=== PATIENT | male | born 1965 | race African-American/Black ===

== ENCOUNTER 2023-03-19 15:19 | Emergency (ER) | payer MEDICARE ==
[~2023-03-19] VITALS: Ht 180.3 cm; Wt 67.5 kg
[2023-03-19] MEDS ORDERED: NAPR220C14 PO (16:20)
[2023-03-19] MEDS ORDERED: ADDE12.5 PO (16:20)
[2023-03-19] MEDS ORDERED: MUCI600T31 PO (16:20)
[2023-03-19 20:21] VITALS: BP 138/86; TEMP 97.8; O2SAT 100
[2023-03-19 21:47] LABS: BASO % 0.6 % (0.0-1.0); EOS # 0.3 10^3/uL (0.0-0.5); HEMATOCRIT 38.1 % (42.0-52.0); HEMOGLOBIN 12.9 g/dl (13.5-17.5); LYMPH # 2.7 10^3/uL (1.5-5.0); LYMPH % 42.1 % (24.0-44.0); MEAN CORPUSCULAR HEMOGLOBIN 31.6 pg (27.0-33.0); MEAN CORPUSCULAR HGB CONC 33.9 g/dl (32.0-36.5); MEAN CORPUSCULAR VOLUME 93.4 fl (80.0-96.0); MONO # 0.5 10^3/uL (0.0-0.8); MONO % 8.6 % (2.0-8.0); NEUTROPHILS # 2.8 10^3/uL (1.5-8.5); NEUTROPHILS % 44.5 % (36.0-66.0); PLATELET COUNT, AUTOMATED 282 10^3/uL (150-450); RED BLOOD COUNT 4.08 10^6/uL (4.30-6.10); WHITE BLOOD COUNT 6.3 10^3/uL (4.0-10.0)
[2023-03-19] MEDS ORDERED: IPRATROPIUM 0.5MG/ALBUTEROL 2.5MG INH SOL UD 3ML (DUONEB) NEB ONE (22:05)
[2023-03-19 22:08] LABS: INR 0.89; PROTHROMBIN TIME 12.2 SECONDS (12.5-14.5)
[2023-03-19 22:09] LABS: PARTIAL THROMBOPLASTIN TIME 26.8 SECONDS (24.8-34.2)
[2023-03-19 22:14] LABS: CK-MB VALUE MASS < 1.0 NG/ML (<3.6)
[2023-03-19 22:18] LABS: FREE T4 1.13 NG/DL (0.89-1.76)
[2023-03-19 22:19] LABS: THYROID STIMULATING HORMONE 0.827 uIU/ML (0.55-4.78)
[2023-03-19 22:26] LABS: CPK CREATINE PHOSPHOKINASE 127 U/L (46-171); MB/CK RELATIVE INDEX 0.78 (< OR =4)
[2023-03-19] MEDS ORDERED: VENTAER INH (22:52)
== END 2023-03-19 22:58 | disposition home or self-care (01) ==
LOC: M ED 15:19
DX: R06.02 Shortness of breath (principal); E23.0 Hypopituitarism; F41.9 Anxiety disorder, unspecified; F90.9 Attention-deficit hyperactivity disorder, unspecified type; F17.200 Nicotine dependence, unspecified, uncomplicated; Z88.1 Allergy status to other antibiotic agents; Z88.2 Allergy status to sulfonamides; Z88.8 Allergy status to other drugs, medicaments and biological substances; Z79.899 Other long term (current) drug therapy

== ENCOUNTER 2023-06-18 08:29 | Emergency (ER) | payer MEDICARE ==
[~2023-06-18] VITALS: Ht 180.3 cm; Wt 79.6 kg
[~2023-06-18 08:29] MED LIST: ADDE12.5 PO; MUCI600T31 PO; NAPR220C14 PO; VENTAER INH
[2023-06-18 10:53] VITALS: BP 166/78; TEMP 98.5; O2SAT 100
== END 2023-06-18 10:55 | disposition home or self-care (01) ==
LOC: M ED 08:29
DX: Z76.0 Encounter for issue of repeat prescription (principal); F41.9 Anxiety disorder, unspecified; F90.9 Attention-deficit hyperactivity disorder, unspecified type

== ENCOUNTER → 2023-12-18 | Outpatient (CLI) | payer MEDICARE | LOC: M CARPUL 11:49 | PROVIDERS: ATTEND Registered Nurse Psychiatric/Mental Health | DX: F43.20 Adjustment disorder, unspecified (principal); I45.10 Unspecified right bundle-branch block ==

== ENCOUNTER 2024-01-28 13:00 | Emergency (ER) | payer MEDICARE ==
[~2024-01-28] VITALS: Ht 180.3 cm; Wt 74.1 kg
[2024-01-28 15:23] LABS: BASO % 0.5 % (0.0-1.0); EOS # 0.1 10^3/uL (0.0-0.5); EOS % 1.2 % (0.0-3.0); HEMOGLOBIN 13.4 g/dl (13.5-17.5); LYMPH # 1.7 10^3/uL (1.5-5.0); LYMPH % 28.9 % (24.0-44.0); MEAN CORPUSCULAR HEMOGLOBIN 32.4 pg (27.0-33.0); MEAN CORPUSCULAR HGB CONC 34.4 g/dl (32.0-36.5); MEAN CORPUSCULAR VOLUME 94.4 fl (80.0-96.0); MONO # 0.5 10^3/uL (0.0-0.8); MONO % 8.6 % (2.0-8.0); NEUTROPHILS # 3.6 10^3/uL (1.5-8.5); NEUTROPHILS % 60.6 % (36.0-66.0); PLATELET COUNT, AUTOMATED 323 10^3/uL (150-450); RED BLOOD COUNT 4.13 10^6/uL (4.30-6.10); WHITE BLOOD COUNT 5.9 10^3/uL (4.0-10.0)
[2024-01-28 15:47] LABS: CORTISOL BASELINE 15.2 UG/DL (4.3-22.4)
[2024-01-28 15:49] LABS: ALBUMIN 3.9 G/DL (3.2-5.2); ALKALINE PHOSPHATASE 95 U/L (46-116); ALT/SGPT 29 U/L (7.0-40); AST/SGOT 16 U/L (<34); BILIRUBIN,TOTAL 0.4 MG/DL (0.3-1.2); BLOOD UREA NITROGEN 16 MG/DL (9-23); CALCIUM LEVEL 9.7 MG/DL (8.5-10.1); CARBON DIOXIDE LEVEL 28 MMOL/L (20-31); CHLORIDE LEVEL 106 MMOL/L (98-107); CREATININE FOR GFR 0.87 MG/DL (0.70-1.30); GLOMERULAR FILTRATION RATE > 60.0 (>56); GLUCOSE, FASTING 99 MG/DL (60-100); IRON (FE) 77 UG/DL (65-175); PERCENT SATURATION 21.7 % (19.7-50.0); POTASSIUM SERUM 4.3 MMOL/L (3.5-5.1); SODIUM LEVEL 141 MMOL/L (136-145); TOTAL IRON BINDING CAPACITY 355 UG/DL (250-425); TOTAL PROTEIN 7.2 G/DL (5.7-8.2)
[2024-01-28 15:50] LABS: FERRITIN 169.9 NG/ML (10.5-307.3); THYROID STIMULATING HORMONE 0.835 uIU/ML (0.55-4.78); THYROXINE (T4) 6.4 UG/DL (4.5-10.9)
[2024-01-28 15:51] LABS: FOLLICLE STIMULATING HORMONE 7.4 mIU/ML (1.4-18.1); LUTEINIZING HORMONE 3.5 mIU/ML (1.5-9.3)
[2024-01-28 15:52] LABS: VITAMIN B12 LEVEL 966 PG/ML (211-911)
[2024-01-28 15:54] LABS: FREE THYROXINE INDEX 1.9 % (1.4-3.8); T UPTAKE 29.6 % (22.5-37.0)
[2024-01-28 15:57] LABS: FOLATE > 24.00 NG/ML (>5.4)
[2024-01-28 16:42] VITALS: BP 126/72; TEMP 97.3; O2SAT 100
[2024-01-28 17:21] LABS: HIV 1&2 SCREEN NEGATIVE (NEGATIVE)
== END 2024-01-28 16:45 | disposition home or self-care (01) ==
LOC: M ED 13:00
DX: R53.83 Other fatigue (principal); E23.0 Hypopituitarism; Z88.1 Allergy status to other antibiotic agents; Z88.2 Allergy status to sulfonamides

== ENCOUNTER → 2024-03-06 | Outpatient (REF) | payer MEDICARE ==
[2024-03-06 18:26] LABS: PSA SCREENING 0.69 NG/ML (< 4.00)
[2024-03-06 18:28] LABS: ALKALINE PHOSPHATASE 87 U/L (46-116); ALT/SGPT 25 U/L (7.0-40); AST/SGOT 18 U/L (<34); BILIRUBIN,TOTAL 0.4 MG/DL (0.3-1.2); BLOOD UREA NITROGEN 18 MG/DL (9-23); CARBON DIOXIDE LEVEL 25 MMOL/L (20-31); CHLORIDE LEVEL 108 MMOL/L (98-107); CHOLESTEROL LEVEL 209 MG/DL (<200); CHOLESTEROL RISK RATIO 2.42 (<5); CREATININE FOR GFR 0.97 MG/DL (0.70-1.30); GLOMERULAR FILTRATION RATE > 60.0 (>56); GLUCOSE, FASTING 113 MG/DL (60-100); HDL CHOLESTEROL 86.2 MG/DL (>40); LDL CHOLESTEROL 102.4 MG/DL (<100); NON-HDL-C 122.8 MG/DL; POTASSIUM SERUM 4.3 MMOL/L (3.5-5.1); SODIUM LEVEL 139 MMOL/L (136-145); TOTAL PROTEIN 7.2 G/DL (5.7-8.2); TRIGLYCERIDES LEVEL 102 MG/DL (<150)
[2024-03-06 18:30] LABS: THYROID STIMULATING HORMONE 0.732 uIU/ML (0.55-4.78); TOTAL 25(OH) VITAMIN D 41.3 NG/ML (20.0-100.0)
[2024-03-06 18:33] LABS: BASO % 0.6 % (0.0-1.0); EOS # 0.3 10^3/uL (0.0-0.5); EOS % 3.7 % (0.0-3.0); HEMATOCRIT 41.7 % (42.0-52.0); HEMOGLOBIN 13.8 g/dl (13.5-17.5); LYMPH # 1.7 10^3/uL (1.5-5.0); LYMPH % 24.4 % (24.0-44.0); MEAN CORPUSCULAR HEMOGLOBIN 31.4 pg (27.0-33.0); MEAN CORPUSCULAR HGB CONC 33.1 g/dl (32.0-36.5); MONO # 0.6 10^3/uL (0.0-0.8); MONO % 8.8 % (2.0-8.0); NEUTROPHILS # 4.2 10^3/uL (1.5-8.5); NEUTROPHILS % 62.2 % (36.0-66.0); PLATELET COUNT, AUTOMATED 312 10^3/uL (150-450); RED BLOOD COUNT 4.39 10^6/uL (4.30-6.10); WHITE BLOOD COUNT 6.8 10^3/uL (4.0-10.0)
[2024-03-06 18:36] LABS: HEMOGLOBIN A1c 4.8 % (4.0-6.0)
== END ==
LOC: M LAB REF 16:52
PROVIDERS: ATTEND Nurse Practitioner Family
DX: R00.0 Tachycardia, unspecified (principal); R14.0 Abdominal distension (gaseous); E55.9 Vitamin D deficiency, unspecified; R53.83 Other fatigue; Z12.5 Encounter for screening for malignant neoplasm of prostate; Z79.899 Other long term (current) drug therapy; Z11.3 Encounter for screening for infections with a predominantly sexual mode of transmission; Z72.89 Other problems related to lifestyle
CPT/HCPCS: 80053; 80061; 82306; 83036; 84443; 85025; 86780; G0103

== ENCOUNTER → 2024-04-16 | Outpatient (REF) | payer MEDICARE ==
[2024-04-30 16:03] LABS: APPEARANCE, URINE TURBID (CLEAR)
[2024-04-30 16:04] LABS: BACTERIA, URINE AUTO NEGATIVE (NEGATIVE); BILIRUBIN, URINE AUTO NEGATIVE (NEGATIVE); BLOOD, URINE BLOOD NEGATIVE (NEGATIVE); COLOR, URINE YELLOW (YELLOW); GLUCOSE, URINE (UA) AUTO NEGATIVE (NEGATIVE); KETONE, URINE AUTO TRACE mg/dL (NEGATIVE); LEUKOCYTE ESTERASE, URINE AUTO NEGATIVE (NEGATIVE); NITRITE, URINE AUTO NEGATIVE (NEGATIVE); PROTEIN, URINE AUTO 1+ mg/dL (NEGATIVE); RBC, URINE AUTO 0 /HPF (0-3); SPECIFIC GRAVITY URINE AUTO 1.031 (1.002-1.035); SQUAMOUS EPITHELIAL CELL UR AU 3 /HPF (0-6); UROBILINOGEN, URINE AUTO 0.2 mg/dL (0.0-2.0); WBC, URINE AUTO 2 /HPF (0-3)
[2024-04-30 16:05] LABS: AMORPHOUS SEDIMENT SMALL (NEGATIVE); GC DNA AMPLIFICATION NEGATIVE (NEGATIVE); MUCUS, URINE SMALL (NEGATIVE)
== END ==
LOC: M LAB REF 12:18
PROVIDERS: ATTEND Nurse Practitioner Family
DX: R82.90 Unspecified abnormal findings in urine (principal); Z11.3 Encounter for screening for infections with a predominantly sexual mode of transmission; Z72.89 Other problems related to lifestyle

== ENCOUNTER → 2024-04-21 | Outpatient (REF) | payer MEDICARE | LOC: M LAB REF 16:23 | PROVIDERS: ATTEND Nurse Practitioner Family | DX: Z86.011 Personal history of benign neoplasm of the brain (principal) ==

== ENCOUNTER → 2024-04-30 | Outpatient (REF) | payer MEDICARE ==
[2024-04-30 14:03] LABS: PERCENT SATURATION 30.6 % (19.7-50.0)
[2024-04-30 14:06] LABS: FERRITIN 90.5 NG/ML (10.5-307.3); PROLACTIN 194.36 NG/ML (2.1-17.7)
== END ==
LOC: M LAB REF 13:14
PROVIDERS: ATTEND Nurse Practitioner Family
DX: R20.2 Paresthesia of skin (principal); R89.1 Abnormal level of hormones in specimens from other organs, systems and tissues